=== PATIENT | female | born 1955 | race Caucasian/White ===

== ENCOUNTER 2020-03-21 06:30 | Day surgery (SDC) | payer OTHER ==
--- NOTE | 2020-03-20 07:05 | EKG ---
Test Date: 2020-03-19 Test Time: 17:02:13 Lombardi Developer: MAIKEL MEASUREMENT RESULTS: Intervals: Rate: 59 IL: 164 QRSD: 94 QT: 432 QTc: 427 Cummings: P: 32 IL: 164 QRS: 5 T: 41 INTERPRETIVE STATEMENTS: Sinus bradycardia Otherwise normal ECG No previous ECG available for comparison Electronically Signed On 03-20-20 07:03:49 CDT by Jacoby Moss
--- OUTSIDE RECORDS SUMMARY | 2020-03-21 06:32 | XMS REPORT | Continuity of Care Document ---
:1955 Author Organization [facility] t Address [address] [place] [address] Dr. Tavarez. [address] [place] [address] Care Team Providers Name Role Phone Unavailable Unavailable Unavailable Problems This patient has no known problems. Allergies, Adverse Reactions, Alerts This patient has no known allergies or adverse reactions. Medications This patient has no known medications. Procedures This patient has no known procedures. Results Test Description Test Time Test Comments Results Result Sourc e Comments SCR MAMM 2018-12-05 SCR MAMM BILATERAL BILATERAL AME 08:18:26 AME CAD CAD DIGITAL DIGITALBILATERAL DIGITAL SCREENING MAMMOGRAM 3D/2D WITH CAD: 11/29/2018CLINICAL: Asymptomatic. Digital breast tomosynthesis was performed in addition to routine CC and MLO views. Current mammographic images were evaluated by either a [employer] M-Vu or a [employer] ImageChecker CAD (computer aided detection system). Comparison is made to exams dated 11/24/2017 mammogram, 11/16/2016 mammogram, and 11/18/2015 mammogram - [facility]. The tissue of both breasts is heterogeneously dense. This may lower the sensitivity of mammography. There are benign calcifications in the left breast. No suspicious mass, architectural distortion, malignant type calcification, or lymph node abnormality detected. Breast architecture is stable compared to prior exams.IMPRESSION: BENIGNThere is no mammographic evidence of malignancy. Resume annual screening mammography in one year. David Edwards M.D. et/penrad:12/05/2018 08:18:26 Attending Technologist: Kandi Wagner MM, [facility] MammographyImaging Technologist: Nellie Solis MM, [facility] Mammographyletter sent: BIRADS 1-2 Normal Mammogram BI-RADS: 2 Benign
[2020-03-21] MEDS ORDERED: Ringers Lactate 1,000 ML IV ONE ×2 (06:59→10:11)
[2020-03-21] MEDS ORDERED: CLINDAMYCIN 900MG/D5W 900 MG/50 ML IVPB IV ONE (07:00)
[2020-03-21] MEDS ORDERED: FENTANYL CITR 100 MCG/2 ML ONE (07:14)
[2020-03-21] MEDS ORDERED: propofoL 200 MG/20 ML VIAL IV ONE (07:14)
[2020-03-21] MEDS ORDERED: ROCURONIUM 50 MG/5 ML VIAL IV ONE (07:14)
[2020-03-21] MEDS ORDERED: LIDOCAINE 2% MPF 5 ML VIAL ONE (07:14)
[2020-03-21] MEDS ORDERED: MIDAZOLAM HCL 2 MG/2 ML INJ ONE (07:14)
[2020-03-21] MEDS ORDERED: ONDANSETRON 4 MG/2 ML VIAL ONE (07:15)
[2020-03-21] MEDS ORDERED: dexAMETHasone 4 MG/ML VIAL ONE (07:15)
[2020-03-21] MEDS ORDERED: OXYMETAZOLINE HCL 0.05% 15ML NAS ONE ×2 (07:31→08:58)
[2020-03-21] MEDS ORDERED: LIDOCAINE 1% W/EPI 1:100,000 MDV 20 ML VIAL ONE (07:32)
[2020-03-21] MEDS ORDERED: NA CHLORIDE 0.9% 500 ML ONE (07:32)
[2020-03-21] MEDS ORDERED: FENTANYL CITR 250 MCG/5 ML ONE (08:45)
--- NOTE | 2020-03-21 10:06 | P.BOP ---
Preoperative diagnosis: CRS, R serous effusion Postoperative diagnosis: same Primary procedure: NE with R max, ethmoid, frontal. Secondary procedure: R tympanostomy tube hoist mechanic: NONE,NONE Estimated blood loss: 200ml Specimen: sinus contents, path and culture Findings: severely inflammed mucosa Anesthesia: General Complications: None Implants: Propel to R fronal, max and ethmoid Transferred to: Recovery Room Condition: Good
[2020-03-21] MEDS ORDERED: IBUPROFEN 400 MG TAB ONE (11:38)
[2020-03-21 13:26] VITALS: TEMP 97.5
[2020-03-21 13:29] VITALS: BP 113/65; O2SAT 96
--- NOTE | 2020-03-23 12:42 | OP ---
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 Procedure: Right ethmoidectomy with frontal sinusotomy and right maxillary antrostomy with use of image guidance. Use of extradural CT image guidance. Indication For Procedure: Ms. Mcnally has severe right-sided chronic sinusitis, which failed maximal medical therapy. Her post antibiotic imaging demonstrated complete opacification of the anterior ethmoids and right maxillary sinus with near complete opacification of her right frontal sinus. There are dental periapical lucencies, which I suspect are the source of this continued infection. Teeth were previously treated with root canal with no improvement in her sinus symptoms. Prior to surgery, we discussed that additional dental treatment may be required if we are unable to control the sinus infection by addressing the sinuses surgically and we will defer this to her traverse rod assembler based on her postoperative course over the next 90 days. The risks, benefits, and alternatives were discussed in detail with the patient who agreed to proceed. Description Of Procedure: The patient is brought to the operating room. She was placed under general anesthesia via oral endotracheal tube. The head of bed was turned 90 degrees. The nasal hairs were trimmed and the nasal cavity was packed with Afrin-soaked pledgets. While awaiting effect of the Afrin-soaked pledgets, the LetMeGo navigation headpiece is secured to the patient's forehead and the posttreatment CT scan was loaded into the system. The laser pointer is used to register and calibrate the system. Accuracy of registration is confirmed with [id number] matching of the tip of the nose, the base of the columella, the glabella, and medial lateral canthus with attention to the right side of the nose in regard to accuracy. Accuracy was felt to be very good. The straight and curved navigation suctions are calibrated. After removal of Afrin-soaked pledgets, a 0-degree endoscope was used to perform a nasal endoscopy. The nasal mucosa on the right is noted to be particularly edematous, inflamed with easy friability and bleeding. There is a significant left septal deviation, but the patient is not complaining of left nasal obstruction nor is there any significant infection noted on the left side, so no septoplasty was performed as a part of this procedure. The mucosa is severely edematous with copious amounts of purulence and complete obstruction of the middle meatus. A sample of the purulence and photo documentation is collected as a part of her record. The Phoenix is used to gently medialize the middle turbinate while backbiter and 90-degree Blakesley are used to remove the uncinate process. The inflammation of the mucosa results in significant bleeding requiring packing with Afrin-soaked pledgets for several minutes. After removal we were able to enlarge the maxillary antrostomy slightly with the microdebrider and to cannulate the antrostomy with curved suction removing copious thick purulent material. Maxillary sinuses then irrigated with multiple aliquots of sterile saline in order to remove as much purulence as feasible. The mucosa of the sinus is severely inflamed and edematous and friable and complete visualization of the sinus is limited due to the degree of this inflammation. Attention was then turned to the ethmoid cavity. The 45-degree Blakesley, and 90-degree Blakesley were used to gently dissect and remove ethmoid partitions along with severely inflamed mucosa and purulence from the ethmoid cavity again visualization and dissection is significantly limited by the degree of bleeding and this process requires significant pauses in order to pack the sinus cavity for hemostasis. The 70 degree endoscope was used to visualize the anterior most aspect of the skull base. The entellus balloon device was used to help identify and dilate the frontal recess in order to confirm the appropriate pathway. The use of device was necessary due to the degree of inflammation resulting in significant bleeding and overall difficulty with the case. After appropriate dilation of the frontal recess, a large front to back Giraffe was used to further dissect bony partitions from the frontal recess in order to open and provide adequate drainage to this area. After additional packing with Afrin-soaked pledgets, nose area is inspected and photo documentation of the frontal recess and frontal sinus is achieved. A Propel Contour steroid eluting stent is then placed within the frontal recess to prevent stenosis and to provide local drug delivery and decrease overall inflammation within this area. A similar propel device is placed within the maxillary sinus again to help in decreasing overall inflammation with local drug delivery of steroid. Finally, a Propel Mini is placed within the ethmoid cavity again to provide local drug delivery of steroids and decreased inflammation to aid in the healing process. Due to the degree of oozing, a Xerogel is used in order to pack the ethmoid cavity. It is soaked with saline in accordance with heavy equipment mechanic instructions. The nasopharynx was then inspected and bleeding appears to be well controlled. The patient was returned to care of anesthesia for awakening, extubation in the operating room, which proceeded without difficulty. During the course of dissection of the ethmoid and frontal sinus, the straight and curved navigation suctions were used periodically in order to confirm the location and aid in dissection due to the overall degree of inflammation and copious bleeding. There may be air cells along the lamina papyracea, which are inadequately dissected, but given the risk of injury to the eye, the option was taken to the more conservative in these areas and reduced risk of damage to critical structures. Disposition: The patient is returned to care of Anesthesia, awakened in the operating room and transferred to the recovery room in stable condition. She will be discharged home later today in the care of her family and will resume clindamycin 300 mg 3 times a day based on concern for origin of this infection. Additional antibiotic may be required based on intraoperative culture results. The patient will resume saline irrigations 3-4 times daily following the procedure, and follow up with Dr. Patel in 10 days for assessment of healing. SUSIE/MELANIE Voice ID: [id number] Report ID: [id number] TARAN
== END 2020-03-21 12:30 | disposition home or self-care (01) ==
LOC: OR 06:30
PROVIDERS: ATTEND Otolaryngology
PROC: 09TU8ZZ Resection of Right Ethmoid Sinus, Via Natural or Artificial Opening Endoscopic (ICD-10-PCS; 2020-03-21)
PROC: 8E09XBZ Computer Assisted Procedure of Head and Neck Region (ICD-10-PCS; principal; 2020-03-21 07:30)
DX: J32.2 Chronic ethmoidal sinusitis (principal); J32.0 Chronic maxillary sinusitis; Z20.828 Contact with and (suspected) exposure to other viral communicable diseases
CPT/HCPCS: 31254; 31256; 31276; 93005; 87070; 87205 ×2; 88304; 88311; 87075; 61782; U0002; J2704; J1100; J2250; J3010 ×2; J7120 ×2; J7040; J2405; 88305